=== PATIENT | female | born 1960 | race Caucasian/White ===

== ENCOUNTER → 2021-02-27 22:24 | Outpatient (CLI) | payer BC | END | disposition home or self-care (01) | LOC: D.MAMMO 01-23 09:30 | PROVIDERS: ATTEND Family Medicine | DX: Z12.31 Encounter for screening mammogram for malignant neoplasm of breast (principal) ==

== ENCOUNTER → 2021-04-03 09:26 | Outpatient (CLI) | payer BC | END | disposition home or self-care (01) | LOC: D.US 09:26 | PROVIDERS: ATTEND Family Medicine | DX: R92.8 Other abnormal and inconclusive findings on diagnostic imaging of breast (principal) ==